=== PATIENT | female | born 1995 | race Caucasian/White ===

== ENCOUNTER → 2016-12-24 | Outpatient (REF) | payer OTHER | LOC: M LAB REF 10:34 | PROVIDERS: ATTEND Physician Assistant | DX: R30.0 Dysuria (principal) ==

== ENCOUNTER → 2016-12-26 | Outpatient (REF) | payer OTHER | LOC: M LAB REF 18:21 | PROVIDERS: ATTEND Physician Assistant | DX: R39.89 Other symptoms and signs involving the genitourinary system (principal) ==

== ENCOUNTER → 2016-12-28 | Outpatient (CLI) | payer OTHER ==
[~2016-12-28] MED LIST: ISOVUE-370 76% 100ML VIAL (Q9967) As Ordered ONE
--- NOTE | 2016-12-29 09:51 | REP ---
Clinical: Lower abdominal pain and dysuria. Technique: Axial contrast enhanced images from the lung bases to the pubic symphysis using 100 ml Isovue 370 intravenous contrast material with coronal and sagittal re-formations. Comparison: None. Findings: Lung bases are clear. Visualized heart and pericardium normal. Liver, spleen, pancreas, gallbladder, bilateral adrenal glands and kidneys are normal. The enteric system is without obstruction or acute inflammatory process. Pelvis demonstrates normal bladder and age-appropriate adnexa. The uterus demonstrates heterogeneous enhancement which is nonspecific but may reflect underlying myomatous changes and correlation is recommended. No pelvic fluid or ascites. No adenopathy. No mass lesion. Abdominal aorta and vasculature normal. Surrounding musculoskeletal structures are intact. Impression: 1. No acute abdominopelvic pathology appreciated. 2. Heterogeneous enhancement to the uterus is nonspecific and may warrant pelvic ultrasound for further evaluation. Signed by David Saleem MD 12/29/2016 09:41 A
== END ==
LOC: M RAD 09:44
PROVIDERS: ATTEND Physician Assistant
DX: R10.30 Lower abdominal pain, unspecified (principal); R30.0 Dysuria
CPT/HCPCS: 74177; Q9967